=== PATIENT | female | born 1970 | race Caucasian/White ===

== ENCOUNTER 2019-12-13 09:18 | Emergency (ER) | payer OTHER, SELFPAY ==
--- NOTE | 2019-12-13 09:36 | ED.GENADULT ---
HPI - General Adult General Chief complaint: Upper Respiratory Infection Stated complaint: sinus infection Time Seen by Provider: 12/13/19 10:01 Source: patient Mode of arrival: ambulatory Limitations: no limitations History of Present Illness HPI narrative: 49-year-old female patient presents to the [facility] with complaints of cold symptoms for the past 2 weeks. Patient states she has had headache, facial pressure, pressure to bilateral ears, runny nose, stuffy nose, coughing up some green sputum. Patient states she is also had some shortness of breath and chest pain at times. Patient states that she is an active smoker. Patient states that she does take Zyrtec and Flonase daily and has been also using some [id number] Mucinex for his symptoms. Patient states that she did get a flu shot this year. Patient denies taking her temperature but states she has had some hot and cold chills here recently as well. Related Data Home Medications Medication Instructions Recorded Confirmed atorvastatin 10 mg PO DAILY 12/13/19 12/13/19 losartan 50 mg PO DAILY 12/13/19 12/13/19 metformin 500 mg PO BID 12/13/19 12/13/19 metoprolol succinate 100 mg PO DAILY 12/13/19 12/13/19 montelukast 10 mg PO DAILY 12/13/19 12/13/19 Allergies Allergy/AdvReac Type Severity Reaction Status Date / Time aspirin AdvReac Intermediate vomiting Verified 12/13/19 10:05 Penicillins AdvReac Intermediate vomiting Verified 12/13/19 10:05 phenazopyridine AdvReac Intermediate vomiting Verified 12/13/19 10:05 Review of Systems Review of Systems: Narrative: CONSTITUTIONAL: Denies fever, positive subjective chills and sweats. EYES: Denies visual changes, redness, or discharge. ENT: Positive rhinorrhea, congestion, denies sore throat, positive pressure to bilateral ear CARDIOVASCULAR: Denies chest pain, palpitations, or edema. RESPIRATORY: Positive cough with dyspnea at times. GASTROINTESTINAL: Denies abdominal pain, nausea, vomiting, or diarrhea. GENITOURINARY: Denies dysuria or hematuria. SKIN: Denies rash or itching. MUSCULOSKELETAL: Denies back pain, joint pain, or myalgia. NEUROLOGIC: Positive headache, numbness, or weakness. PSYCHIATRIC: Denies anxiety or depression. [facility] Comments At the time of my signature I agree with nursing past medical history, surgical, social, and family history. There is no relevant family history pertinent to the presenting complaint. Exam Narrative: Exam Narrative: GENERAL: Well-appearing, well-nourished, and in no acute distress. HEAD: Normocephalic, atraumatic. Tenderness noted to frontal maxillary sinuses on palpation. EYES: PERRLA and EOMI. ENT: Nares with erythema and edema noted bilaterally, no rhinorrhea or epistaxis. Mucous membranes moist. Posterior pharynx with slight erythema but no tonsillar large but no exudates or lesions present. Bilateral TMs do have some fluid behind them but there is no erythema or foreign bodies in the canal. NECK: Supple. No lymphadenopathy CHEST: Slightly decreased lung sounds noted bilateral lower lobes. The bilateral upper lobes are clear.. No respiratory distress. Patient able talk in clear complete sentences. No tripoding noted. HEART: Regular rate and rhythm. No murmur heard. Normal peripheral pulses. ABDOMEN: Soft, nontender, nondistended, normal active bowel sounds. EXTREMITIES: Normal range of motion. No edema. SKIN: Warm, dry, no rash. NEURO: No focal deficits. Alert and oriented x3. Course Vital Signs Vital signs: Vital Signs Temperature 37.1 C 12/13/19 09:39 Pulse Rate 90 12/13/19 09:39 Respiratory Rate 16 12/13/19 09:39 Blood Pressure 143/76 H 12/13/19 09:39 Pulse Oximetry 97 12/13/19 09:39 Temperature 37.1 C 12/13/19 09:39 Pulse Rate 90 12/13/19 09:39 Respiratory Rate 16 12/13/19 09:39 Blood Pressure 143/76 H 12/13/19 09:39 Pulse Oximetry 97 12/13/19 09:39 Vital signs reviewed. The patient has been informed that they may have p
[2019-12-13 09:39] VITALS: BP 143/76; PULSE 90; RESP 16; TEMP 37.1; O2SAT 97
== END 2019-12-13 10:10 | disposition home or self-care (01) ==
PROVIDERS: Emergency Provider Nurse Practitioner Family
DX: J01.00 Acute maxillary sinusitis, unspecified (principal); E78.00 Pure hypercholesterolemia, unspecified; I10 Essential (primary) hypertension; E11.9 Type 2 diabetes mellitus without complications
CPT/HCPCS: 99213; G0463

== ENCOUNTER 2021-04-25 12:41 | Emergency (ER) | payer OTHER, SELFPAY ==
[2021-04-25 12:50] VITALS: BP 163/86; PULSE 84; RESP 20; TEMP 37; O2SAT 97
--- NOTE | 2021-04-25 12:51 | ED.URI ---
HPI - URI/Sore Throat General Chief Complaint: Upper Respiratory Infection Stated Complaint: Congestion,Headache Time Seen by Provider: 04/25/21 12:50 Source: patient and RN notes reviewed History of Present Illness HPI Narrative: Patient is a 51-year-old female who presents the urgent care with complaints of congestion, headaches, puffy eyes. Patient states that she has been taking Xyzal in the morning and Singulair in the evening for her symptoms. States have been ongoing for approximately 1 week and reports of one low-grade fever. Patient denies of any nausea, vomiting or productive cough. Patient has been using her 's nebulizer treatment for some chest congestion but denies of any shortness of breath or chest pain. No other acute complaints. No acute distress noted. Patient aware of the plan of care. Some parts of this dictation were generated by voice recognition software and may contain typographical and/or grammatical inaccuracies. Related Data Home Medications Medication Instructions Recorded Confirmed atorvastatin 10 mg PO DAILY 12/13/19 04/25/21 losartan 50 mg PO DAILY 12/13/19 04/25/21 metformin 500 mg PO BID 12/13/19 04/25/21 metoprolol succinate 100 mg PO DAILY 12/13/19 04/25/21 montelukast 10 mg PO DAILY 12/13/19 04/25/21 gabapentin 300 mg PO TID 04/25/21 04/25/21 Allergies Allergy/AdvReac Type Severity Reaction Status Date / Time aspirin AdvReac Intermediate vomiting Verified 04/25/21 12:59 Penicillins AdvReac Intermediate vomiting Verified 04/25/21 12:59 phenazopyridine AdvReac Intermediate vomiting Verified 04/25/21 12:59 Review of Systems Review of Systems: Narrative: CONSTITUTIONAL: Denies fever, chills, or sweats. EYES: Reports of both the eyes and clear drainage without redness or vision changes ENT: Reports of sinus congestion, postnasal drainage CARDIOVASCULAR: Denies chest pain, palpitations, or edema. RESPIRATORY: Denies cough or dyspnea. GASTROINTESTINAL: Denies abdominal pain, nausea, vomiting, or diarrhea. GENITOURINARY: Denies dysuria or hematuria. SKIN: Denies rash or itching. MUSCULOSKELETAL: Denies back pain, joint pain, or myalgia. NEUROLOGIC: Reports of intermittent headaches All other systems reviewed are negative, except as documented in HPI. [facility] Comments At the time of my signature, I reviewed and agree with the nursing past medical, surgical, social, and family history. There is no relevant family history pertinent to the patient complaint. Exam Narrative: Exam Narrative: GENERAL: This is a well-nourished, well-developed patient, in no apparent distress. HEAD: normocephalic, atraumatic. Mild frontal sinus tenderness EYES: PERRL. Sclera clear/white. Vision is grossly intact. Mild bilateral injected conjunctiva with clear drainage EARS: External ears normal, auditory canals clear and without drainage, TMs normal without perforation. Hearing grossly intact. NOSE: External nose normal with no obvious nasal discharge, nares without redness, no rhinorrhea. THROAT: Mucous membranes moist, posterior pharynx clear. Moderate postnasal drainage NECK: Neck supple, non-tender without lymphadenopathy CARDIOVASCULAR: Regular rate and rhythm without murmurs, gallops, or rubs. RESPIRATORY: Slight inspiratory wheeze to right lower lung field otherwise clear SKIN: warm, intact with no suspicious lesions or rash, good texture and turgor. NEURO: awake, alert, and oriented to person, place and time. There were no obvious focal neurologic abnormalities. EXTREMITIES: No clubbing, cyanosis, or edema. Course Vital Signs Vital signs: Vital Signs Temperature 98.6 F 04/25/21 12:50 Pulse Rate 84 04/25/21 12:50 Respiratory Rate 04/25/21 12:50 Blood Pressure 163/86 H 04/25/21 12:50 Pulse Oximetry 97 04/25/21 12:50 Temperature 98.6 F 04/25/21 12:50 Pulse Rate 84 04/25/21 12:50 Respiratory Rate 04/25/21 12:50 Blood Pressure 163/86 H 04/25/21 12:50 Pulse Oximet
== END 2021-04-25 13:05 | disposition home or self-care (01) ==
PROVIDERS: Emergency Provider Nurse Practitioner Family
DX: J32.9 Chronic sinusitis, unspecified (principal); E78.00 Pure hypercholesterolemia, unspecified; I10 Essential (primary) hypertension; E11.9 Type 2 diabetes mellitus without complications
CPT/HCPCS: 99213; G0463

== ENCOUNTER 2023-01-12 14:20 | Emergency (ER) | payer MEDICAID, SELFPAY ==
--- NOTE | 2023-01-12 14:27 | ED.URI ---
HPI - URI/Sore Throat General Chief Complaint: Upper Respiratory Infection Stated Complaint: Cold Symptoms Source: patient and RN notes reviewed History of Present Illness HPI Narrative: 52-year-old female presents to urgent care with complaints of congestion, runny nose, and head pressure. Patient reports feeling hot and cold at times. Denies any chest pain, shortness of breath, or vomiting. Denies any sore throat or ear pain. Patient has been taking [id number] cold and flu medication with mild relief. Some parts of this dictation were generated by voice recognition software and may contain typographical and/or grammatical inaccuracies. Related Data Home Medications Medication Instructions Recorded Confirmed atorvastatin 10 mg tablet 10 mg PO DAILY 12/13/19 04/25/21 losartan 50 mg tablet 50 mg PO DAILY 12/13/19 04/25/21 metformin 500 mg tablet 500 mg PO BID 12/13/19 04/25/21 metoprolol succinate 100 mg 100 mg PO DAILY 12/13/19 04/25/21 tablet,extended release 24 hr montelukast 10 mg tablet 10 mg PO DAILY 12/13/19 04/25/21 gabapentin 300 mg capsule 300 mg PO TID 04/25/21 04/25/21 Allergies Allergy/AdvReac Type Severity Reaction Status Date / Time aspirin AdvReac Intermediate vomiting Verified 04/25/21 12:59 Penicillins AdvReac Intermediate vomiting Verified 04/25/21 12:59 phenazopyridine AdvReac Intermediate vomiting Verified 04/25/21 12:59 Review of Systems Review of Systems: CONSTITUTIONAL: Denies fever, chills, or sweats. EYES: Denies visual changes, redness, or discharge. ENT: Reports congestion and runny nose CARDIOVASCULAR: Denies chest pain, palpitations, or edema. RESPIRATORY: Denies cough or dyspnea. GASTROINTESTINAL: Denies abdominal pain, nausea, vomiting, or diarrhea. GENITOURINARY: Denies dysuria or hematuria. SKIN: Denies rash or itching. MUSCULOSKELETAL: Denies back pain, joint pain, or myalgia. NEUROLOGIC: Denies headache, numbness, or weakness. [facility] Comments At the time of my signature, I reviewed and agree with the nursing past medical, surgical, social, and family history. There is no relevant family history pertinent to the patient complaint. Exam Narrative: GENERAL: This is a well-nourished, well-developed patient, in no apparent distress. HEAD: normocephalic, atraumatic. EYES: PERRL. Sclera clear/white. Vision is grossly intact. EARS: External ears normal, auditory canals clear and without drainage, TMs normal without perforation. Hearing grossly intact. NOSE: External nose normal with no obvious nasal discharge, congestion noted. THROAT: Mucous membranes moist, posterior pharynx clear. NECK: Neck supple, mild lymphadenopathy. CARDIOVASCULAR: Regular rate and rhythm without murmurs, gallops, or rubs. RESPIRATORY: Clear to auscultation. Breath sounds equal bilaterally. No wheezes, rales, or rhonchi. SKIN: warm, intact with no suspicious lesions or rash, good texture and turgor. NEURO: awake, alert, and oriented to person, place and time. There were no obvious focal neurologic abnormalities. Course Course Level of Care: Express Care Visit Vital Signs Vital signs: Vital Signs Temperature 97.8 F 01/12/23 14:28 Pulse Rate 83 01/12/23 14:28 Respiratory Rate 18 01/12/23 14:28 Blood Pressure 138/76 01/12/23 14:28 Pulse Oximetry 97 01/12/23 14:28 Oxygen Delivery Room Air 01/12/23 14:28 Temperature 97.8 F 01/12/23 14:28 Pulse Rate 83 01/12/23 14:28 Respiratory Rate 18 01/12/23 14:28 Blood Pressure 138/76 01/12/23 14:28 Pulse Oximetry 97 01/12/23 14:28 Oxygen Delivery Room Air 01/12/23 14:28 Reviewed MDM - URI/Sore Throat MDM Narrative Medical decision making narrative: Return to urgent care or go to the ER for new or worsening symptoms. Avoid smoking/second-hand smoke. Continue to take Tylenol or Motrin for pain. Increase your Vitamin C intake. Use a humidifier or vaporizer at night. Take Medications as prescribed. Drink ple
[2023-01-12 14:28] VITALS: BP 138/76; PULSE 83; RESP 18; TEMP 36.6; O2SAT 97
== END 2023-01-12 14:45 | disposition home or self-care (01) ==
PROVIDERS: Emergency Provider Nurse Practitioner Family; PCP Nurse Practitioner Family
DX: J01.00 Acute maxillary sinusitis, unspecified (principal)
CPT/HCPCS: 99213; G0463